=== PATIENT | male | born 1945 | race Caucasian/White ===

== ENCOUNTER → 2018-04-11 08:49 | Outpatient (POV) | payer MEDICARE, OTHER, SELFPAY | PROVIDERS: Family Provider Internal Medicine Adolescent Medicine; PCP Internal Medicine Adolescent Medicine; Visit Provider Dermatology | DX: Z00.00 Encounter for general adult medical examination without abnormal findings (principal) ==

== ENCOUNTER → 2019-01-28 08:06 | Outpatient (POV) | payer MEDICARE, OTHER, SELFPAY | PROVIDERS: Visit Provider Dermatology | DX: Z00.00 Encounter for general adult medical examination without abnormal findings (principal) ==

== ENCOUNTER → 2019-05-30 07:51 | Outpatient (CLI) | payer MEDICARE, BC, SELFPAY ==
--- NOTE | 2019-05-30 07:54 | CA_ITS ---
APPROVED REPORT EXAM: Comprehensive 2D, Doppler, and color-flow Echocardiogram Controlled Atmospheric Furnace Brazer: Nery Huerta RDCS Ht: 5 ft 10 in Wt: 174lbs BSA: 1.97 BP: 150/85 mmHg Indications: Chest Pain, Shortness of Breath, Dizziness and Vertigo 2D Dimensions LVOT 2.10 cm (M/F) 1.5-2.5 M-Mode Dimensions RVDd 2.30 cm (0.9-2.6) LA Diam 4.20 cm (1.9-4.0) LVDd 5.30 cm (3.5-5.7) Ao Diam 3.00 cm (2.0-3.7) LVDs 3.20 cm (3.5-5.7) AV Cusp 1.60 cm (1.5-2.6) IVSd 0.80 cm (0.6-1.1) PWd 0.80 cm (0.6-1.1) EF (Teich) 69.60% FS 39.60% EDV (Teich) 135.00 mL ESV (Teich) 41.00 mL LV Diastology E/A Ratio 1.2 MED E' 6.92 (< 7 cm/sec) E'/MED E' Ratio 11.10 (>14) LAT E' 10.80 (<10 cm/sec) E/LAT E' Ratio 7.10 (>14) Mitral Valve MV E Max Vinay. 76.50 (40-130 cm/s) MV A Velocity 62.70 (40-130 cm/s) E/A Ratio 1.20 Tricuspid Valve TR P. Velocity 307.00 cm/s RAP Estimate 10.00 mmHg RVSP 48.00 mmHg Left Ventricle Left atrium is mildly enlarged, left ventricle is normal size, mild concentric left ventricular hypertrophy, visually estimated ejection fraction 55% with no regional wall motion abnormality, grade 1 diastolic dysfunction seen without tissue Doppler evidence of raise left atrial pressure. Right Ventricle Right atrium and right ventricular normal size and contractility. Aortic Valve Aortic valve is thickened and calcified leaflet continue to display good mobility, there is no aortic stenosis, there is mild aortic insufficiency. Mitral Valve Mitral valve is minimally thickened, there is mild mitral regurgitation. Tricuspid Valve Tricuspid valve is grossly normal, there is mild tricuspid regurgitation, calculated right ventricular systolic pressure is 47 mmHg consistent with moderately elevated right ventricular systolic pressure. Pulmonic Valve Pulmonic valve is minimally thickened and fibrosed, there is no pulmonic stenosis, there is moderate pulmonic insufficiency. Great Vessels Aortic root is normal size. Pericardium No significant pericardial effusion noted. Conclusion 1. Mildly enlarged left atrium, normal left ventricular size, visually estimated ejection fraction 55% with no regional wall motion abnormality, grade 1 diastolic dysfunction seen without tissue Doppler evidence of raise left atrial pressure. 2. Thickened and calcified aortic valve without aortic stenosis, there is mild aortic insufficiency. 3. Mild mitral and tricuspid regurgitation. Calculated right ventricular systolic pressure is 47 mmHg consistent with moderately elevated right ventricular systolic pressure. 4. Moderate pulmonic insufficiency. 5. No significant pericardial effusion noted. Electronically signed by : Jas Dawn, 05/30/2019 15:15:25
--- NOTE | 2019-05-30 07:55 | CA_ITS ---
APPROVED REPORT Community Service Aide: BROOKLYNN Laterality: Bilateral Study Quality: Good Indications: Dizziness and Vertigo Doppler Spectral Velocity Analysis ECA (R) 99.10/10.50 cm/s ECA (L) 65.70/6.72 cm/s dICA (R) 70.80/22.70 cm/s dICA (L) 64.90/14.60 cm/s Yelena (R) 62.90/18.00 cm/s Yelena (L) 62.40/13.90 cm/s pICA (R) 80.90/19.00 cm/s pICA (L) 58.00/11.70 cm/s dCCA (R) 84.90/22.80 cm/s dCCA (L) 87.40/20.20 cm/s pCCA (R) 74.60/14.90 cm/s pCCA (L) 81.80/13.20 cm/s ICA/CCA 0.95 Vert (L) 53.40/15.60 cm/s ICA/CCA 0.74 Conclusion Study suggests no significant stenosis of the right internal carotid artery. Study suggests less than 20% stenosis of the left internal carotid artery. Antegrade flow seen in the left vertebral artery. No flow visualized in the right vertebral artery, ? occlusion. Consider CTA for further evaluation Electronically signed by : Petey García MD 05/30/2019 18:29:52
== END ==
PROVIDERS: PCP Internal Medicine Adolescent Medicine; Visit Provider Nurse Practitioner Family
DX: R06.02 Shortness of breath (principal); R42 Dizziness and giddiness; R07.9 Chest pain, unspecified; I25.10 Atherosclerotic heart disease of native coronary artery without angina pectoris; I10 Essential (primary) hypertension
CPT/HCPCS: 93306; 93880

== ENCOUNTER → 2019-06-05 10:06 | Outpatient (CLI) | payer MEDICARE, BC, SELFPAY ==
--- NOTE | 2019-06-05 10:09 | CT_ITS ---
Procedure: CT ANGIO NECK CLINICAL HISTORY: ABN CORONARY DOPPLER, OCCLUSION RT VERTEBRAL ARTERY Dizziness and vertigo, near syncope COMPARISON: CA CAROTID DUPLEX BI from 05/30/2019 TECHNIQUE: IV Contrast: 100ml Optiray 350 Axial images obtained with sagittal and coronal reformats. All CT scans at the facility use one or more dose reduction, viz: automated exposure control, ma/kV adjustment per patient size (including targeted exams where dose is matched to indication, i.e. head), or iterative reconstruction technique. FINDINGS: AORTIC ARCH AND GREAT VESSELS: The aortic arch has an unremarkable appearance. The right brachiocephalic and common carotid are unremarkable. 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 The left vertebral artery has an unremarkable appearance. The left common carotid and left subclavian artery are unremarkable. The right common carotid has an unremarkable appearance. There is a mild amount of plaque in the right carotid bulb with a shallow ulcer. Approximately 15-20 percent stenosis of the carotid. Mild amount of plaque is present in the left carotid bulb but no significant ulceration with approximately 10-20 percent stenosis of the bulb. Left vertebral artery has an unremarkable appearance. CTA of the brain: Mild atheromatous changes involve the cavernous portion of the ICAs. No significant stenosis. No intracranial occlusive process. No aneurysms apparent. The basilar artery is supplied mainly by the left vertebral. No basilar aneurysm. Posterior circulation has an unremarkable appearance. No AVMs or enhancing intracranial lesions. Incidental note made of ethmoid sinus disease. IMPRESSION: 1. Hypoplastic/extremely small right vertebral artery 2. There is plaque present in both carotid bulbs with a shallow ulcer in the right carotid bulb with only mild stenosis of the bulbous. 3. Mild atheromatous changes of the cavernous portion of the ICAs. No occlusive change or intracranial aneurysm evident. Dictated by: Petey García MD 06/06/2019 06:37 Electronically signed by Petey García MD in [place] 06/06/2019 06:37
== END ==
PROVIDERS: PCP Internal Medicine Adolescent Medicine; Visit Provider Nurse Practitioner Family
DX: R93.89 Abnormal findings on diagnostic imaging of other specified body structures (principal); I65.01 Occlusion and stenosis of right vertebral artery
CPT/HCPCS: 70496; 70498; Q9967

== ENCOUNTER → 2020-03-30 13:31 | Outpatient (POV) | payer MEDICARE, BC, SELFPAY | PROVIDERS: PCP Internal Medicine Adolescent Medicine; Visit Provider Dermatology | DX: Z00.00 Encounter for general adult medical examination without abnormal findings (principal) ==

== ENCOUNTER → 2020-08-03 10:43 | Outpatient (POV) | payer MEDICARE, BC, SELFPAY | PROVIDERS: Visit Provider Dermatology | DX: Z00.00 Encounter for general adult medical examination without abnormal findings (principal) ==

== ENCOUNTER → 2021-01-25 09:05 | Outpatient (POV) | payer MEDICARE, BC, SELFPAY | PROVIDERS: Visit Provider Dermatology | DX: Z00.00 Encounter for general adult medical examination without abnormal findings (principal) ==

== ENCOUNTER → 2021-07-06 07:17 | Outpatient (CLI) | payer MEDICARE, BC, SELFPAY ==
[2021-07-06 08:00] LABS: Chloride 107 mmol/L (98-107); Sodium 143 mmol/L (136-145)
[2021-07-06 08:01] LABS: Potassium 5.3 mmoL/L (3.5-5.1)
[2021-07-06 08:03] LABS: Alanine Aminotransferase 21 U/L (12-78); Albumin/Globulin Ratio 1.6 (1.1-1.8); Alkaline Phosphatase 79 U/L (38-126); Anion Gap 12.3 mEq/L (5-15); Aspartate Amino Transferase 28 U/L (17-59); Bilirubin,Total 0.9 mg/dl (0.2-1.3); Blood Urea Nitrogen 17 mg/dl (9-20); Carbon Dioxide 29 mmol/L (22.0-30.0); Estimated Glomerular Filt Rate 59 ml/min (>60); GFR (African American) 72 ML/MIN (>60); Globulin 2.5 g/dL (1.3-3.2); Total Protein,Serum 6.5 g/dl (6.3-8.2)
[2021-07-06 08:04] LABS: Calcium 9.6 mg/dl (8.4-10.2); Chol/HDL Ratio 4.4 (1-3.5); Cholesterol 181 mg/dl (140-200); Glucose 106 mg/dl (74-100); HDL Cholesterol 41 mg/dl (40-60); Triglycerides 96 mg/dl (30-150); VLDL Cholesterol 19 mg/dL (0-40)
[2021-07-06 08:15] LABS: Direct LDL Cholesterol 111.16 mg/dL (100-129)
[2021-07-06 08:35] LABS: Thyroid Stimulating Hormone 3.22 uIU/mL (0.465-4.68)
[2021-07-06 09:52] LABS: Prostate Specific Ag Screen 3.9 ng/ml (0.0-4.0)
== END ==
PROVIDERS: Visit Provider Nurse Practitioner Family
DX: Z00.00 Encounter for general adult medical examination without abnormal findings (principal); E78.5 Hyperlipidemia, unspecified; E03.9 Hypothyroidism, unspecified; N40.0 Benign prostatic hyperplasia without lower urinary tract symptoms; Z12.5 Encounter for screening for malignant neoplasm of prostate
CPT/HCPCS: 36415; 80053; 80061; 84443; G0103

== ENCOUNTER 2021-09-18 10:05 | Emergency (ER) | payer MEDICARE, BC, SELFPAY ==
[2021-09-18 10:40] VITALS: BP 143/70; PULSE 61; RESP 18; TEMP 36.9; O2SAT 99; BMI 25.1
--- NOTE | 2021-09-18 11:03 | HMH.EDUTC ---
[facility] Disposition Clinical Impression: Upper respiratory infection, viral Disposition: Home, Self-Care Condition on Discharge: Good Instructions: DI for Viral Upper Respiratory Infection -- Adult Additional Instructions: covid swab was sent to lab, staff will call you with your results if positive, if not heard by tomorrow call for results. self isolate until test results are known to be negative No sign of a bacterial infection. Likely viral. Viruses can take 7-14 days to run their course. Nasal saline and bulb syringe or nose Emily to remove nasal drainage to help with nasal congestion. Hard to eat, drink, sleep with nasal congestion so important to keep this cleaned out. Monitor temp. Tylenol or Motrin as needed for pain or fever Encourage fluids, water, Gatorade, Powerade, Pedialyte if infant/toddler/child Warm salt water gargles Warm fluids Sore throat lozenges Sleep elevated Humidifier/vaporizer Follow-up immediately for new or worsening symptoms or no noticeable improvement over the next 48-72 hours. Prescriptions: Fluticasone Propionate [Flonase 50mcg nasal spray 16gm] 1 spr NS DAILY 14 Days #9.9 ml Transmission Status: Pending to [facility] #[id number] Referrals: Rashawn Charlton MD [Primary Care Provider] - Time of Disposition: 11:13 Medical Decision Making - Carlos Inquiry Pt receiving controlled substance: No Orders (Tests/Meds): ORDERS Category Date Time Status Full Resp Panel w/COVID ([facility]) Routine Lab 09/18/21 10:49 Ordered [facility] HPI - General Chief complaint: Urgent Treatment Center Stated complaint: cough, congestion/runny nose, h/a Time Seen by Provider: 09/18/21 11:03 Mode of Arrival: Ambulatory Source of Information: Patient Limitations: No Limitations - History of Present Illness Provider Complaint: 75 yr old male presents for body aches,chills, clear nasal congestion,sinus pressure and cough for a few days. - Related Data Previous Rx's Medication Instructions Recorded Fluticasone Propionate [Flonase 1 spr NS DAILY 14 Days #9.9 ml 09/18/21 50mcg nasal spray 16gm] Allergies Allergy/AdvReac Type Severity Reaction Status Date / Time No Known Allergies Allergy Verified 11/04/17 12:[address] [facility] History - Hepatitis A Screen Attestation statement:: This patient has been screened for Hepatitis A risk factors. I have reviewed the patient's past medical history: Yes - Social History Smoking Status: Never smoker Alcohol Intake: never ROS Obtained: Yes Systems reviewed as appropriate & no additional complaints - Constitutional Constitutional: Reports system reviewed and no additional complaints, except as docu, Denies fever(s) - Eyes Eyes: Reports system reviewed and no additional complaints, except as docu, Denies blurry vision - ENT Ears, Nose, Mouth, and Throat: Reports system reviewed and no additional complaints, except as docu, Reports nasal congestion, Reports nasal discharge, Reports sinus pressure - Cardiovascular Cardiovascular: Reports system reviewed and no additional complaints, except as docu, Denies chest pain - Respiratory Respiratory: Reports system reviewed and no additional complaints, except as docu, Denies shortness of breath, Reports cough - Gastrointestinal Gastrointestingal: Reports: system reviewed and no additional complaints, except as docu. Denies: abdominal pain - Genitourinary Male Genitourinary: Reports system reviewed and no additional complaints, except as docu - Musculoskeletal Musculoskeletal: Reports system reviewed and no additional complaints, except as docu, Denies joint pain - Integumentary/Breasts Skin/Breast: Reports system reviewed and no additional complaints, except as docu, Denies rash - Neurologic Neurologic: Reports system reviewed and no additional complaints, except as docu, Denies dizziness - Endocrine Endocrine: Reports system reviewed and no additional complaints, except as docu, Denies fati
[2021-09-18 11:20] VITALS: BP 143/70; PULSE 61; RESP 18; TEMP 36.9; O2SAT 99
[2021-09-18 11:35] LABS: Adenovirus,PCR Not Detected (NotDetected); Bordetella Pertussis Not Detected (NotDetected); Chlamydophila Pneumoniae, PCR Not Detected (NotDetected); Coronavirus 19, PCR Not Detected (NotDetected); Coronavirus 229E Not Detected (NotDetected); Coronavirus NL63 Not Detected (NotDetected); Coronavirus OC43 Not Detected (NotDetected); Coronovirus HKU1,PCR Not Detected (NotDetected); Influenza A, PCR Not Detected (NotDetected); Influenza AH1, 2009 Not Detected (NotDetected); Influenza AH1, PCR Not Detected (NotDetected); Influenza AH3,PCR Not Detected (NotDetected); Influenza B, PCR Not Detected (NotDetected); Mycoplasma Pneumoniae, PCR Not Detected (NotDetected); Parainfluenza 1, PCR Not Detected (NotDetected); Parainfluenza 2, PCR Not Detected (NotDetected); Parainfluenza 3, PCR Not Detected (NotDetected); Parainfluenza 4, PCR Not Detected (NotDetected); Respiratory Syncytial Virus Not Detected (NotDetected); Rhinovirus/Enterovirus Not Detected (NotDetected)
[2021-09-18 12:59] LABS: Human Metapneumovirus Detected (NotDetected)
== END 2021-09-18 11:24 | disposition home or self-care (01) ==
PROVIDERS: Emergency Provider Nurse Practitioner Family; PCP Internal Medicine Adolescent Medicine
DX: J06.9 Acute upper respiratory infection, unspecified (principal); B34.8 Other viral infections of unspecified site
CPT/HCPCS: G0463; 87581; 87632; 87798; 99202; C9803; U0003; U0005

== ENCOUNTER → 2021-11-22 14:38 | Outpatient (POV) | payer MEDICARE, BC, SELFPAY | PROVIDERS: Visit Provider Dermatology | DX: Z00.00 Encounter for general adult medical examination without abnormal findings (principal) ==

== ENCOUNTER → 2022-02-28 08:36 | Outpatient (CLI) | payer MEDICARE, BC, SELFPAY | PROVIDERS: PCP Internal Medicine Adolescent Medicine | DX: Z01.812 Encounter for preprocedural laboratory examination (principal); Z20.822 Contact with and (suspected) exposure to COVID-19 | CPT/HCPCS: C9803; U0003; U0005 ==

== ENCOUNTER 2022-11-09 10:05 | Outpatient (RCR) | payer MEDICARE, BC, SELFPAY | END 2023-01-09 10:37 | disposition home or self-care (01) | LOC: PT 10:05 | PROVIDERS: Visit Provider Thoracic Surgery (Cardiothoracic Vascular Surgery) | DX: I25.10 Atherosclerotic heart disease of native coronary artery without angina pectoris (principal); Z95.1 Presence of aortocoronary bypass graft | CPT/HCPCS: 93798 ==

== ENCOUNTER → 2022-11-09 11:10 | Outpatient (CLI) | payer MEDICARE, BC, SELFPAY ==
--- NOTE | 2022-11-09 | XR_ITS ---
FINAL REPORT CLINICAL HISTORY: open heart oct 2022 FINDINGS: PA and lateral views of the chest are obtained. There is no prior exam for comparison. The cardiac and mediastinal silhouettes are within normal limits. There is left lower lobe opacity which is likely atelectasis although pneumonia cannot be excluded. There is a small to moderate left pleural effusion. There is no pneumothorax, or acute osseous abnormality. IMPRESSION: 1. Left lower lobe opacity is likely atelectasis although pneumonia is not excluded. 2. Small to moderate left pleural effusion. Reviewed, Interpreted and Dictated by Darline Pond MD Transcribed by Jaclyn Islas Authenticated and [facility]
== END ==
PROVIDERS: PCP Internal Medicine Adolescent Medicine; Visit Provider Thoracic Surgery (Cardiothoracic Vascular Surgery)
DX: J90 Pleural effusion, not elsewhere classified (principal)
CPT/HCPCS: 71046

== ENCOUNTER → 2022-12-11 12:47 | Outpatient (CLI) | payer MEDICARE, BC, SELFPAY ==
[2022-12-11 13:59] LABS: Basophils # 0.1 K/mm3 (0-0.2); Basophils % 0.5 % (0.1-2.0); Eosinophils % 0.3 % (0.1-12.0); Hematocrit 27.4 % (42.0-52.0); Hemoglobin 8.5 g/dL (14.1-18.0); Lymphocytes # 0.9 K/mm3 (0.7-4.5); Lymphocytes % 9.6 % (10-50); Mean Corpuscular HGB Conc 31.1 g/dL (31.8-35.4); Mean Corpuscular Hemoglobin 29.7 pg (27.0-31.2); Mean Corpuscular Volume 95.6 fl (80-94); Mean Platelet Volume 8.5 fl (7.4-10.4); Monocytes # 0.3 K/mm3 (0.1-1.0); Monocytes % 3.5 % (1.7-9.3); Neutrophils # 8.2 K/mm3 (1.8-7.8); Neutrophils % 86.1 % (37.0-80.0); Platelet Count 275 K/mm3 (142-424); Red Blood Count 2.87 M/mm3 (4.60-6.20); Red Cell Distribution Width 16.3 % (11.5-17.5); White Blood Count 9.6 K/mm3 (4.8-10.8)
[2022-12-11 14:03] LABS: MANUAL DIFFERENTIAL MANUAL DIFFERENTIAL (MANUAL DIFF)
[2022-12-11 15:14] LABS: Alanine Aminotransferase 22 U/L (12-78); Albumin Level 3.7 g/dl (3.5-5.0); Albumin/Globulin Ratio 1.6 (1.1-1.8); Alkaline Phosphatase 69 U/L (38-126); Anion Gap 14.3 mEq/L (5-15); Aspartate Amino Transferase 26 U/L (17-59); Bilirubin,Total 0.4 mg/dl (0.2-1.3); Blood Urea Nitrogen 40 mg/dl (9-20); Calcium 9.2 mg/dl (8.4-10.2); Carbon Dioxide 20 mmol/L (22.0-30.0); Chloride 105 mmol/L (98-107); Estimated Glomerular Filt Rate 49 ml/min (>60); GFR (African American) 60 ML/MIN (>60); Globulin 2.3 g/dL (1.3-3.2); Glucose 120 mg/dl (74-100); Potassium 4.3 mmoL/L (3.5-5.1); Sodium 135 mmol/L (136-145)
[2022-12-11 15:42] LABS: Thyroid Stimulating Hormone 3.53 uIU/mL (0.465-4.68)
[2022-12-11 16:36] LABS: Lymphocytes % 14 % (10-50); Monocytes % 4 % (2-9); Neutrophils % 82 % (42-76); Platelet Estimate Normal; RBC Morphology Normal; Total Cells Counted 100
== END ==
PROVIDERS: PCP Internal Medicine Adolescent Medicine; Visit Provider Internal Medicine Adolescent Medicine
DX: R42 Dizziness and giddiness (principal); R00.0 Tachycardia, unspecified; K92.1 Melena
CPT/HCPCS: 36415; 80053; 84443; 85007; 85025

== ENCOUNTER → 2022-12-13 08:52 | Outpatient (CLI) | payer MEDICARE, BC, SELFPAY ==
[2022-12-13 09:18] LABS: Basophils % 0.5 % (0.1-2.0); Eosinophils # 0.2 K/mm3 (0.0-0.4); Eosinophils % 2.8 % (0.1-12.0); Hemoglobin 8.2 g/dL (14.1-18.0); Lymphocytes # 1.2 K/mm3 (0.7-4.5); Lymphocytes % 17.4 % (10-50); Mean Corpuscular HGB Conc 32.7 g/dL (31.8-35.4); Mean Corpuscular Hemoglobin 31.1 pg (27.0-31.2); Mean Corpuscular Volume 95.3 fl (80-94); Mean Platelet Volume 9.6 fl (7.4-10.4); Monocytes # 0.3 K/mm3 (0.1-1.0); Monocytes % 4.5 % (1.7-9.3); Neutrophils # 5.2 K/mm3 (1.8-7.8); Neutrophils % 74.7 % (37.0-80.0); Platelet Count 284 K/mm3 (142-424); Red Blood Count 2.62 M/mm3 (4.60-6.20); Red Cell Distribution Width 17.4 % (11.5-17.5); White Blood Count 6.9 K/mm3 (4.8-10.8)
[2022-12-13 09:50] LABS: Chloride 106 mmol/L (98-107); Sodium 136 mmol/L (136-145)
[2022-12-13 09:52] LABS: Blood Urea Nitrogen 24 mg/dl (9-20); Estimated Glomerular Filt Rate 54 ml/min (>60); GFR (African American) 65 ML/MIN (>60)
[2022-12-13 09:53] LABS: Alanine Aminotransferase 22 U/L (12-78); Albumin Level 3.5 g/dl (3.5-5.0); Albumin/Globulin Ratio 1.7 (1.1-1.8); Alkaline Phosphatase 64 U/L (38-126); Aspartate Amino Transferase 24 U/L (17-59); Bilirubin,Total 0.5 mg/dl (0.2-1.3); Carbon Dioxide 23 mmol/L (22.0-30.0); Globulin 2.1 g/dL (1.3-3.2); Glucose 89 mg/dl (74-100); Total Protein,Serum 5.6 g/dl (6.3-8.2)
== END ==
PROVIDERS: PCP Internal Medicine Adolescent Medicine; Visit Provider Internal Medicine Adolescent Medicine
DX: D62 Acute posthemorrhagic anemia (principal)
CPT/HCPCS: 36415; 80053; 85025

== ENCOUNTER → 2022-12-15 08:41 | Outpatient (CLI) | payer MEDICARE, BC, SELFPAY ==
[2022-12-15 09:11] LABS: Basophils % 0.4 % (0.1-2.0); Eosinophils # 0.4 K/mm3 (0.0-0.4); Eosinophils % 5.3 % (0.1-12.0); Hematocrit 26.6 % (42.0-52.0); Hemoglobin 8.5 g/dL (14.1-18.0); Lymphocytes # 1.2 K/mm3 (0.7-4.5); Lymphocytes % 18.6 % (10-50); Mean Corpuscular HGB Conc 31.9 g/dL (31.8-35.4); Mean Corpuscular Hemoglobin 30.9 pg (27.0-31.2); Mean Corpuscular Volume 96.8 fl (80-94); Mean Platelet Volume 9.3 fl (7.4-10.4); Monocytes # 0.3 K/mm3 (0.1-1.0); Monocytes % 4.1 % (1.7-9.3); Neutrophils # 4.7 K/mm3 (1.8-7.8); Neutrophils % 71.6 % (37.0-80.0); Platelet Count 342 K/mm3 (142-424); Red Blood Count 2.75 M/mm3 (4.60-6.20); Red Cell Distribution Width 17.8 % (11.5-17.5); White Blood Count 6.6 K/mm3 (4.8-10.8)
[2022-12-15 09:54] LABS: Chloride 106 mmol/L (98-107); Sodium 138 mmol/L (136-145)
[2022-12-15 09:55] LABS: Potassium 3.9 mmoL/L (3.5-5.1)
[2022-12-15 09:57] LABS: Alanine Aminotransferase 17 U/L (12-78); Albumin Level 3.3 g/dl (3.5-5.0); Albumin/Globulin Ratio 1.6 (1.1-1.8); Alkaline Phosphatase 65 U/L (38-126); Anion Gap 12.9 mEq/L (5-15); Aspartate Amino Transferase 20 U/L (17-59); Bilirubin,Total 0.6 mg/dl (0.2-1.3); Blood Urea Nitrogen 25 mg/dl (9-20); Calcium 8.8 mg/dl (8.4-10.2); Carbon Dioxide 23 mmol/L (22.0-30.0); Estimated Glomerular Filt Rate 49 ml/min (>60); GFR (African American) 60 ML/MIN (>60); Globulin 2.1 g/dL (1.3-3.2); Glucose 111 mg/dl (74-100); Iron 30 ug/dL (49-181); Total Protein,Serum 5.4 g/dl (6.3-8.2)
[2022-12-15 10:07] LABS: Total Iron Binding Capacity 260 ug/dL (261-462)
[2022-12-15 10:33] LABS: Ferritin 48.4 ng/ml (17.9-464)
[2022-12-15 11:16] LABS: Vitamin B12 518 pg/mL (239-931)
[2022-12-15 11:20] LABS: Folate > 20.00 ng/mL
== END ==
PROVIDERS: PCP Internal Medicine Adolescent Medicine; Visit Provider Nurse Practitioner Family
DX: D62 Acute posthemorrhagic anemia (principal)
CPT/HCPCS: 36415; 80053; 82607; 82728; 82746; 83540; 83550; 85025

== ENCOUNTER → 2023-01-30 08:34 | Outpatient (POV) | payer MEDICARE, BC, SELFPAY | PROVIDERS: Visit Provider Dermatology | DX: Z00.00 Encounter for general adult medical examination without abnormal findings (principal) ==

== ENCOUNTER → 2023-08-24 08:45 | Outpatient (CLI) | payer MEDICARE, BC, SELFPAY ==
--- NOTE | 2023-08-24 08:56 | XR_ITS ---
FINAL REPORT CLINICAL HISTORY: Left knee pain FINDINGS: LEFT KNEE 3 views of the left knee were obtained. There is no acute fracture or dislocation. There is moderate medial compartment joint space narrowing. Extensive chondrocalcinosis is seen in the medial and lateral joint space. There are osteophytes at the undersurface of the patella. Soft tissues are unremarkable. IMPRESSION: No acute bony abnormality. Reviewed, Interpreted and Dictated by Marlon Odonnell MD Transcribed by Yaquelin Escudero Authenticated and [facility]
== END ==
PROVIDERS: PCP Internal Medicine Adolescent Medicine; Visit Provider Orthopaedic Surgery
DX: M25.562 Pain in left knee (principal)
CPT/HCPCS: 73562

== ENCOUNTER 2023-09-11 15:37 | Outpatient (POV) | payer MEDICARE, BC, SELFPAY | END 2023-09-11 23:59 | disposition home or self-care (01) | LOC: SC 15:38 | PROVIDERS: PCP Internal Medicine Adolescent Medicine; Visit Provider Dermatology | DX: Z00.00 Encounter for general adult medical examination without abnormal findings (principal) ==

== ENCOUNTER 2023-09-28 10:49 | Outpatient (CLI) | payer MEDICARE, BC, SELFPAY ==
--- NOTE | 2023-09-28 10:55 | XR_ITS ---
FINAL REPORT CLINICAL HISTORY: knee pain, swelling FINDINGS: Right knee Three views were obtained. There is no acute fracture or dislocation. There are mild degenerative changes. No joint effusion is identified. Note is made of meniscal calcification. IMPRESSION: Degenerative changes as above. Reviewed, Interpreted and Dictated by Jhon Torres III, MD Transcribed by Monica Valdes Authenticated and [facility]
== END 2023-09-28 23:59 ==
LOC: RAD 10:50
PROVIDERS: PCP Internal Medicine Adolescent Medicine; Visit Provider Orthopaedic Surgery
DX: M25.561 Pain in right knee (principal)
CPT/HCPCS: 73562

== ENCOUNTER 2023-10-31 08:58 | Outpatient (RCR) | payer MEDICARE, BC, SELFPAY ==
--- NOTE | 2023-10-31 09:49 | HMH.PTOPEV ---
PT Outpatient Evaluation Rehab PT Outpatient Evaluation Start: 10/31/23 09:05 Freq: Status: Active Protocol: Document 10/31/23 09:38 HERBERTH (Rec: 10/31/23 09:49 HERBERTH [id number]) E-signed By Jorge L Mendez, PT Outpatient Therapy Subjective History Subjective History Patient is a 78 year old male presenting to outpatient PT with reports of chronic LBP with BLE symptoms (R>L). Symptoms of insidous onset that have progressively gotten worse over the past month. Patient reports hx of previous injections that have provided some significant relief. No recent imaging to report. Comorbidities include hx of open heart sx approx 1 year ago, R foot ORIF, HTN and L trigger finger release. New diagnosis of cancer in past 12 No months? Chief Complaint Pain,Stiff,Paresthesia Symptom Type Ache,Dull,Numbness,Tingling Symptoms Relieved By Rest/Positioning,Prescription Meds,Activity Symptoms Aggravated By Sitting,Bending/Stooping, Lifting Prior Functional Limitations Sitting Current Functional Limitations Lifting,Housework,Sitting, Recreation Activity,Bending/ Stooping Symptom Description Intermittent Level of pain today (0-10) 3 Pain scale - at its best (0-10) 0 Pain scale - at its worst (0-10) 6 Lumbopelvic Eval Posture Thoracic Spine Posture Standing Position Increased Kyphosis Lumbar Spine Posture Standing Position Decreased Lordosis Assistive device Assistive Devices None / NA Palapation tenderness bilateral lumbar spinal tenderness Yes: L5/S1 3/4 buttock tenderness Yes: upper gluteal/post hip mm 3/4 Accessory Movement L5 bilateral S1 bilateral Range of Motion Lumbar Spine Active Flexion Range of WNL Motion (degrees) Lumbar Spine Active Extension Range of 18 Motion (degrees) Left Lumbar Spine Lateral Flexion Active 14 Range of Motion (degrees) Right Lumbar Spine Lateral Flexion 16 Active Range of Motion (degrees) Lumbar Spine ROM Limitations Soft Tissue Tightness,Bony Restriction Manual Muscle Test Bilateral Knee Extension Strength Grade 5 Normal Knee Flexion Strength Grade 5 Normal Hip Flexion Strength Grade 5 Normal Extensor Hallucis Longus Strength Grade 5 Normal Ankle Dorsiflexion Strength Grade 5 Normal Gastronemius/Soleus Strength Grade 5 Normal Altered Sensation LE Dermatome Level L5,S1 Comment NT Special Tests Lumbar Spine Screen Positive Hip Genevieve Test Positive Left,Positive Right Hip Piriformis Test Positive Left,Positive Right Hip Bowstring (Cram) Test Positive Left,Positive Right Sciatic Nerve Tension Test Positive Left,Positive Right Good Test Positive Sacroiliac Joint Compression Test Negative Left,Negative Right Sacroiliac Joint Distraction Test Negative Left,Negative Right Lumbar Long Raymond Distraction Test/Manual Positive Traction Oswestry Index Section 1 Pain Intensity The pain comes and goes and is moderate Section 2 Personal Care (Washing,Dresing) change my way of washing or dressing in order to avoid pain Section 3 Lifting lifting heavy weights off the floor, but I can manage light to medium Section 4 Walking I have some pain when walking but it does not increase with distance Section 5 Sitting Pain prevents me from sitting for more than 1/2 hour Section 6 Standing I have some pain on standing, but it does not increase with time Section 7 Sleeping Because of my pain, my normal night's sleep is less than 6 hours sleep Section 8 Social Life My social life is normal and gives me no extra pain Section 9 Traveling I get extra pain while traveling, but it does not compel me to seek al Section 10 Changing Degreee of Pain My pain seems to be getting better, but improvement is slow Score and Risk Level Oswestry Sc 17 Oswestry Risk Level Moderate Disability Outpatient Therapy Assessment Impairments Problems/Impairmments Palpation Tenderness,Impaired Range of Motion,Impaired Sitting,Impaired Lifting, Impaired Household Care, Impaired Bending,Impaired Recreational Activities, Subjective C/O Pain Prognosis Rehab Potential Good Clinical Impression Consistent with Diagnosis Yes Short Term Goals Number of Weeks 2 Decrease Subjective C/O Pain Yes: 12/18 at worst Patient to be Ind w/ HEP Yes [facility]ci Goals Number of Weeks 4-6 Decreased Palpation Tenderness Yes: 1/ Increase Range of Motion Yes: WNL Increase Ability to Sit Yes: 1 hr without difficulty Improve Ability For Household Care Yes Return to Recreational Activities Yes Improve Oswestry Score Yes: mild diability Decrease Subjective C/O Pain Yes: 10 at worst Outpatient Therapy Plan of Care Treatment Plan May Include Therapeutic Exercise Including Home Yes Exercise Program Manual Therapy Techniques Yes Neuromuscular Re-education Yes Therapeutic Activities to Return to Yes Previous Functional/Work Level Gait Training Yes ADL/Self Care Education Yes Mechanical Traction Yes Thermal Modalities Yes Ultrasound/Phonophoresis Yes Iontophoresis Yes Orthotics/Bracing/Splinting Yes Massage Yes Eval/Re-Eval Yes Frequency Times per week 2 Duration Number of Weeks 4-6 Addendums This patient is a candidate for social No or vocational rehab? Patient/Guardian verbally acknowledges Yes understanding of treatment program and consents to further treatment? Patient/Guardian verbally acknowledges Yes understanding of diagnosis, prognosis and goals for treatment? Eval Complexity PT Charges 13140 - Moderate Complexity Shoulder/Elbow Eval Shoulder Objective Measurements Elbow Objective Measurements PHYSICIAN CERTIFICATION: I certify the specified therapy services for Hemant Jamison are required, authorized, and reviewed every 30 days.
== END 2023-10-31 10:15 | disposition home or self-care (01) ==
LOC: PT 08:58
PROVIDERS: PCP Internal Medicine Adolescent Medicine; Visit Provider Nurse Practitioner Family
DX: M54.41 Lumbago with sciatica, right side (principal)
CPT/HCPCS: 97163

== ENCOUNTER 2024-01-29 08:52 | Outpatient (POV) | payer MEDICARE, BC, SELFPAY | END 2024-01-29 23:59 | disposition home or self-care (01) | LOC: SC 08:54 | PROVIDERS: PCP Internal Medicine Adolescent Medicine; Visit Provider Dermatology | DX: Z00.00 Encounter for general adult medical examination without abnormal findings (principal) ==

== ENCOUNTER 2024-08-18 10:52 | Outpatient (CLI) | payer MEDICARE, BC, SELFPAY ==
--- NOTE | 2024-08-18 10:55 | XR_ITS ---
FINAL REPORT CLINICAL HISTORY: left knee pain FINDINGS: Three weightbearing views of the left knee reveal no evidence of fracture or dislocation. The bony alignment is normal. There are moderate degenerative changes. There is medial compartment narrowing. Meniscal calcifications are noted. There is a moderate joint effusion. Postoperative changes are seen in the medial knee. No localized soft tissue abnormality is seen. IMPRESSION: Degenerative changes with no acute bony abnormality. Reviewed, Interpreted and Dictated by Jhon Torres III, MD Transcribed by Nimo Bower Authenticated and . [facility]
== END 2024-08-18 23:59 | disposition home or self-care (01) ==
LOC: RAD 10:53
PROVIDERS: PCP Internal Medicine Adolescent Medicine; Visit Provider Physician Assistant
DX: M25.562 Pain in left knee (principal)
CPT/HCPCS: 73562